=== PATIENT | male | born 1955 | race Caucasian/White ===

== ENCOUNTER 2019-11-06 16:00 | Emergency (ER) | payer OTHER ==
--- NOTE | 2019-11-06 16:07 | PDOC ---
History of Present Illness - General Chief Complaint: Pain Stated Complaint: PAIN FROM RLQ TO RIGHT FLANK Time Seen by Provider: 11/06/19 16:02 History Source: Patient Exam Limitations: No Limitations - History of Present Illness Travel History: No Initial Comments: 11/06/19 16:03 64 y/o male presents with RLQ pain since 3 am. No fever or chills. No hematuria or dysuria, No fall or lifting. Denies N/V/d./c. Took Ibuprofen today. Pain goes up abdomen and into back right side as well. No hx of kidney stones. Pain Radiation: reports: no radiation Past History - Past Medical History Allergies/Adverse Reactions: Allergies Allergy/AdvReac Type Severity Reaction Status Date / Time No Known Allergies Allergy Verified 11/06/19 16:01 Home Medications: Ambulatory Orders Red Yeast Rice 600 mg PO BID 07/30/15 Cholecalciferol (Vitamin D3) [Vitamin D3] 2,000 unit PO DAILY capsule 06/13/16 [place]-3 Acid Ethyl Esters [Lovaza -] 2,000 mg PO BID 11/06/19 Anemia: No Asthma: No Cancer: No Cardiac Disorders: No CVA: No COPD: No CHF: No Dementia: No Diabetes: No GI Disorders: No Disorders: No HTN: No Hypercholesterolemia: Yes Liver Disease: No Seizures: No Thyroid Disease: No - Surgical History Abdominal Surgery: No Appendectomy: No Cardiac Surgery: No Cholecystectomy: No Lung Surgery: No Neurologic Surgery: No Orthopedic Surgery: Yes (FX LEFT WRIST) - Psycho Social/Smoking Cessation Hx Smoking History: Never smoked Have you smoked in the past 12 months: No Hx Alcohol Use: Yes Drug/Substance Use Hx: No Substance Use Type: Alcohol Hx Substance Use Treatment: No Review of Systems - Review of Systems Able to Perform ROS?: Yes Is the patient limited [place] proficient: No Constitutional: No: Chills, Fever Respiratory: No: Cough, Shortness of Breath Cardiac (ROS): No: Chest Pain ABD/GI: No: Diarrhea, Nausea, Vomiting : No: Burning, Hematuria All Other Systems: Reviewed and Negative *Physical Exam - Physical Exam General Appearance: Yes: Nourished, Appropriately Dressed. No: Apparent Distress HEENT: positive: EOMI, [place], Normal ENT Inspection, Normal Voice, Symmetrical, Pharynx Normal Neck: positive: Trachea midline, Normal Thyroid, Supple. negative: Tender, Rigid Respiratory/Chest: positive: Lungs Clear, Normal Breath Sounds. negative: Chest Tender, Respiratory Distress Cardiovascular: positive: Regular Rhythm, Regular Rate, S1, S2. negative: Edema , JVD, Murmur Vascular Pulses: Femoral (R): 4+, Femoral (L): 4+, Carotid (R): 4+, Carotid (L) : 4+, Dorsalis-Pedis (R): 4+, Doralis-Pedis (L): 4+ Gastrointestinal/Abdominal: positive: Normal Bowel Sounds, Tender (RLQ tenderness, no RUQ, LUQ or LLQ tenderness, +BS, no abdominal pulsatile masses noted) Musculoskeletal: positive: Normal Inspection. negative: CVA Tenderness Extremity: positive: Normal Capillary Refill, Normal Inspection, Normal Range of Motion Integumentary: positive: Normal Color, Dry, Warm Neurologic: positive: healthcare customer service II-XII NML intact, Fully Oriented, Alert, Normal Mood/ Affect, Normal Response, Motor Strength 02/20 ED Treatment Course - LABORATORY CBC & Chemistry Diagram: 11/06/19 16:23 11/06/19 16:23 ED Progress Note - Progress Note Progress Note: 11/06/19 16:06 RLQ pain, r/o appendicitis 11/06/19 18:48 CT pending to r/o appendicitis vs stone Pt states has blood in urine normally due to prostate and has been worked up Case will be endorsed to Dr. Hamilton at 7 pm Discharge - Discharge Information Problems reviewed: Yes Clinical Impression/Diagnosis: Abdominal pain Qualifiers: Abdominal location: right lower quadrant Qualified Code(s): R10.31 - Right lower quadrant pain Condition: Stable - Follow up/Referral Referrals: Sacha Doran MD [Primary Care Provider] - - Patient Discharge Instructions - Post Discharge Activity
[2019-11-06 16:19] VITALS: BMI 23.6
[2019-11-06 16:28] LABS: BASO % 0.5 % (0-2.0); EOS % 0.4 % (0-4.5); HEMATOCRIT 47.8 % (35.4-49); HEMOGLOBIN 15.8 GM/dl (11.7-16.9); LYMPH % 12.1 % (8-40); MCH 30.6 pg (25.7-33.7); MCHC 33.1 g/dl (32.0-35.9); MEAN CELL VOLUME 92.6 fl (80-96); MEAN PLT VOLUME 8.9 fl (7.5-11.1); PLATELET COUNT 209 K/MM3 (134-434); RBC 5.16 M/mm3 (4.00-5.60); RDW 12.6 % (11.9-15.9); WHITE BLOOD COUNT 15.3 K/mm3 (4.0-10.8)
[2019-11-06] MEDS ORDERED: KETOROLAC TROMETHAMINE 30 MG/1 ML VIAL IVPUSH ONE (16:41)
[2019-11-06] MEDS ORDERED: SODIUM CHLORIDE 1,000 ML IV STA (16:42)
[2019-11-06 16:43] LABS: EPITHELIAL CELLS FEW /hpf; URIC ACID CRYSTALS 1+ /hpf (NONE SEEN)
[2019-11-06] MEDS ORDERED: KETOROLAC TROMETHAMINE 30 MG/1 ML VIAL ONE (16:44)
[2019-11-06 16:47] LABS: ALBUMIN 4.1 g/dl (3.4-5.0); BILIRUBIN,TOTAL 0.5 mg/dl (0.2-1); CALCIUM 9.6 mg/dl (8.5-10); CREATININE 1.6 mg/dl (0.55-1.3); POTASSIUM 3.7 mmol/L (3.5-5.1); TOT PROT 6.8 g/dl (6.4-8.2)
[2019-11-06 19:07] VITALS: BP 140/87; PULSE 76; TEMP 98.9
--- NOTE | 2019-11-06 19:13 | PDOC ---
*Physical Exam - Vital Signs Last Vital Signs Temp Pulse Resp BP Pulse Ox 98.9 F 76 18 140/87 99 11/06/19 19:06 11/06/19 19:06 11/06/19 16:01 11/06/19 19:06 11/06/19 19:06 ED Treatment Course - LABORATORY CBC & Chemistry Diagram: 11/06/19 16:23 11/06/19 16:23 - ADDITIONAL ORDERS Additional order review: Laboratory Results 11/06/19 11/06/19 11/06/19 16:23 16:23 16:23 WBC 15.3 H RBC 5.16 Hgb 15.8 Hct 47.8 MCV 92.6 MCH 30.6 MCHC 33.1 RDW 12.6 Plt Count 209 MPV 8.9 Absolute Neuts (auto) 12.0 Neutrophils % 79.0 D Lymphocytes % 12.1 D Monocytes % 8.0 Eosinophils % 0.4 Basophils % 0.5 Sodium 138 Potassium 3.7 Chloride 106 Carbon Dioxide 24 Anion Gap 8 BUN 25.0 H Creatinine 1.6 H Est GFR (CKD-EPI)AfAm 51.99 Est GFR (CKD-EPI)NonAf 44.86 Random Glucose 115 H Calcium 9.6 Total Bilirubin 0.5 AST 22 ALT 23 Alkaline Phosphatase 44 L Total Protein 6.8 Albumin 4.1 Urine Color Yellow Urine Appearance Clear Urine pH 5.5 Urine Protein 2+ H Urine Glucose (UA) Negative Urine Ketones Negative Urine Blood 3+ H Urine Nitrite Negative Urine Bilirubin Negative Urine Urobilinogen 0.2 Ur Leukocyte Esterase Negative Urine RBC 10-20 Urine WBC 0-2 Ur Transition Epith Cell Few Urine Crystals Few Uric Acid Crystals 1+ Urine Bacteria Few 11/06/19 16:23 RBC 5.16 MCV 92.6 MCHC 33.1 RDW 12.6 MPV 8.9 Neutrophils % 79.0 D Lymphocytes % 12.1 D Monocytes % 8.0 Eosinophils % 0.4 Basophils % 0.5 - Medications Given in the ED: ED Medications Discontinued Medications Generic Name Dose Route Start Last Admin Trade Name Freq PRN Reason Stop Dose Admin Sodium Chloride 1,000 mls @ 1,000 mls/hr 11/06/19 16:42 11/06/19 16:55 Normal Saline - IV 11/06/19 17:41 1,000 mls/hr ASDIR STA Administration Ketorolac Tromethamine 30 mg 11/06/19 16:41 11/06/19 16:55 Toradol Injection - IVPUSH 11/06/19 16:42 30 mg ONCE ONE Administration Medical Decision Making - Medical Decision Making 11/06/19 19:10 pt signed out from Dr Brown at 7pm pending imaging in summary, 64 y/o male presents with RLQ pain since 3 am, radiating up his abdomen and to the back. h/o uncomplicated kidney stones many years ago. no urinary sx. no f/c. Vital Signs Temp Pulse Resp BP Pulse Ox 98.9 F 76 18 140/87 99 11/06/19 19:06 11/06/19 19:06 11/06/19 16:01 11/06/19 19:06 11/06/19 19:06 labs reviewed, +leukocytosis 15K and Cr elevation to 1.6, increased from prior baseline ~1.2 given hydration, toradol for pain control. UA does not appear infected, +RBCs c/w passage of stone CT a/p from IOC: right hydro and perinephric stranding. Right UVJ 5 mm stone. Small left kidney stone no obstruction there. Enlarged prostate, normal appendix, cholelithiasis without cholecystitis, atelectasis in the lungs otherwise clear. 11/06/19 19:18 - on reassessment, he is feeling improved, abdomen soft and benign. VS reviewed and wnl. no fever, nontoxic. wbc ct likely inflammatory vs stress related, no infectious sx identified no infectious sx, UA is neg for infection preliminary. urine cultures sent, f/u results in the next 24-48 hours. cr mildly elevated from his baseline, given appropriate hydration. pt admits to taking frequent doses of ibuprofen today for the colicky pain, so could be nsaid induced hold on nsaids due mild increase in Cr function. pt understands no nsaids. prn oxycodone for severe pain zofran for the nausea. tylenol for mild pain. With pain medication the patient improved significantly. The patient is referred to the on-call urologist for follow up (call to Dr Ochoa, pending callback; pt has own urologist, additional referrals also provided for close followup) and is discharged with oral narcotics for pain control, antiemetics, and given the following return precautions: Fever > 100.5, pain not controlled with narcotics, worsening pain, dehydration, vomiting or any other concerns and to strain the urine. tylenol for mild to moderate pain, rx oxycodone PRN for more severe pain. zofran for nausea, adequate hydration and oral fluids and air conditioning in hot weather. literature/evidence low for flomax benefit with the distal 5mm stone, so defer from ED standpoint. urine strainer to catch urine. pt and family verbalized understanding of impression and plan, discharge stable condition. 11/06/19 20:12 11/06/19 20:19 Discharge - Discharge Information Problems reviewed: Yes Clinical Impression/Diagnosis: Ureterolithiasis, Elevated serum creatinine Abdominal pain Qualifiers: Abdominal location: right lower quadrant Qualified Code(s): R10.31 - Right lower quadrant pain Condition: Stable Disposition: HOME - Admission No - Additional Discharge Information Prescriptions: Ondansetron HCl [Zofran] 4 mg PO TID PRN #9 tablet PRN Reason: nausea/vomiting Oxycodone HCl 10 mg PO QID PRN #12 tablet MDD 4 PRN Reason: Severe Pain - Follow up/Referral Referrals: Sacha Doran MD [Primary Care Provider] - Flo Ochoa MD [Staff Physician] - Paulino Bustamante MD [Staff Physician] - [place] MD [Staff Physician] - - Patient Discharge Instructions Patient Printed Discharge Instructions: Creatinine, DI for Kidney Stones Additional Instructions: Your CT results were significant for obstructed stone 5mm at the ureteral- vesicular junction and swelling of collecting system, with a high probability of passing on its own your blood work shows a white blood cell count elevation likely from passing the stone. your kidney function was mildly elevated to 1.6, baseline closer to 1.2 so only very slight. Drink plenty of water/fluids, avoid caffeine or alcohol Strain all urine for the next 1-2 days and save any stone for analysis acetaminophen as needed for [id number]-[id number] pain. If you have any stomach discomfort while taking Motrin, you can use TUMS to help. avoid ibuprofen/naproxen or NSAIDS due to your mild elevation in kidney function Oxycodone every 6 hours as needed for severe pain; Please do not drive or operate heavy machinery while on this medication because it can impair your judgement. This is a very addictive medication, do not take it unless you absolutely have to. Return to ER if you experience persistent pain/vomiting/fever/dehydration, difficulty urinating or inability to tolerate oral intake. Follow-up with your primary doctor within the next 2-3 days. Urologist follow up this week, referral given as well. Dr Ochoa is the technical marketing consultant urologist (we will give you a list of urologists, but make sure they accept your insurance). Please bring your labs and imaging with you to your appointment. - Post Discharge Activity
== END 2019-11-06 20:21 | disposition home or self-care (01) ==
LOC: FER 16:00
PROC: 3E0333Z Introduction of Anti-inflammatory into Peripheral Vein, Percutaneous Approach (ICD-10-PCS; principal; 2019-11-06)
PROC: 3E0337Z Introduction of Electrolytic and Water Balance Substance into Peripheral Vein, Percutaneous Approach (ICD-10-PCS; 2019-11-06)
DX: R10.31 Right lower quadrant pain (principal); E78.00 Pure hypercholesterolemia, unspecified
CPT/HCPCS: 36415; 74176-TC; 80053; 81003; 81015; 85025; 87086; 99283-25; J7030

== ENCOUNTER 2022-10-31 15:15 | Emergency (ER) | payer OTHER, MEDICARE ==
[2022-10-31 16:55] VITALS: BMI 23.3
[2022-10-31] MEDS ORDERED: LIDOCAINE HCL 2% JELLY 10 ML CARTRIDGE ONE (17:45)
[2022-10-31 18:46] VITALS: RESP 20; TEMP 98.3
== END 2022-10-31 18:57 | disposition home or self-care (01) ==
LOC: FER 15:15
DX: N45.1 Epididymitis (principal); N30.00 Acute cystitis without hematuria
CPT/HCPCS: 76870-TC; 81003; 81015; 87086; 87186; 99284-25

== ENCOUNTER 2022-11-17 21:01 | Emergency (ER) | payer OTHER, MEDICARE ==
[2022-11-17 21:18] VITALS: BP 118/80; PULSE 87; RESP 18; TEMP 97.8; BMI 22.6
== END 2022-11-17 22:38 | disposition home or self-care (01) ==
LOC: FER 21:01
DX: R33.9 Retention of urine, unspecified (principal)
CPT/HCPCS: 81003; 81015; 87086; 99283-25